=== PATIENT | female | born 1960 | race Caucasian/White ===

== ENCOUNTER 2019-01-27 12:37 | Observation (INO) ==
--- NOTE | 2019-01-27 13:01 | Emergency Department Note ---
Disposition Clinical Impression: Left facial numbness, Numbness of left hand Disposition: Admitted As Inpatient Condition: Fair Referrals: Joslyn Morton DO [Primary Care Provider] - Forms: ED Satisfaction Letter Time of Disposition: 15:03 Neuro HPI - General Chief Complaint: ED Neuro Symptoms/Deficit Stated Complaint: Left hand / face numbness Time Seen by Provider: 01/27/19 12:40 Source: patient Limitations: no limitations Nursing Notes Reviewed: Yes Vital Signs Reviewed: Yes - History of Present Illness HPI Narrative: 58-year-old female presents from home for evaluation of tingling to the dorsum of her left hand as well as to the left nasal labial crease. Onset yesterday at 3 PM; 21 hours prior to arrival. On its onset her symptoms were intermittent; on for 10 minutes off for 10 minutes. This lasted approximately 1 hour before they became constant. They are present when she was asleep present when she woke this morning. Unchanged in location or intensity. Symptoms similar to when she had a TIA several years ago. She did take quantity 3 full dose aspirin yesterday evening. PMH: TIA, hypertension Habits: 1.5ppd x 44yrs tobacco smoking. No EtOH, no illicit. Anticoagulant: None Antiplatelet: None ROS: Positive: Tingling of left dorsal hand and left nasolabial fold Negative: Fever, chills, nausea, vomiting, chest pains, palpitations, dyspnea, diaphoresis. No slurring of speech, difficulty swallowing, facial asymmetry, weakness, headache, vision changes - Related Data Home Medications: Home Medications Medication Instructions Recorded Confirmed Aspirin [Adult Aspirin Regimen] 81 mg PO DAILY 01/27/19 01/27/19 Omeprazole [PriLOSEC] 40 mg PO DAILY 01/27/19 01/27/19 Triamterene/HCTZ 37.5/25mg 1 each PO DAILY 01/27/19 01/27/19 [Dyazide] Allergies/Adverse Reactions: Allergies Allergy/AdvReac Type Severity Reaction Status Date / Time ciprofloxacin [From Cipro] AdvReac Itching Verified 01/27/19 12:39 Sulfa (Sulfonamide AdvReac Hives Verified 01/27/19 12:39 Antibiotics) All systems ED: reviewed and negative except as stated. Review of Systems: As Per HPI Past Medical History - Past Medical History Medical history: Reports: hypertension, TIA - Social History Smoking Status: Current every day smoker Alcohol use: Reports: none Drug use: Reports: none Physical Exam Vital Signs Reviewed General: Patient is alert, oriented, and in no acute distress. Head: atraumatic, normocephalic Eye: normal appearance, PERRL, EOMI, no scleral icterus, no conjunctival injection ENT: mucous membranes moist, normal external ear exam Neck: normal inspection, trachea midline, full ROM Chest: normal inspection, symmetric chest rise Respiratory: Good respiratory effort. Bilateral breath sounds are clear without wheezing, crackles, or rhonchi. Cardiovascular: Regular rate and rhythm. No clicks, rubs, gallops, or murmors. Normal heart sounds. Abdomen: Bowel sounds present normoactive. Abdomen is soft, nondistended, and nontender. No guarding or rebound. No organomegaly noted. Musculoskeletal: Spontaneously moving all extremities. Skin: warm, dry, intact. Neuro: GCS 15. Patient is answering all questions briskly and appropriately and without hesitation. No slurring of speech. No facial asymmetry. Maintaining oral secretions without difficulty. Strength 5/5 and equal in bilateral upper and lower extremity is. Sensation to light touch intact and equal in bilateral upper and lower extremities with the exception of tingling to the dorsum of left hand from wrist to her fingertips. Tingling to touch and left cranial nerve V2 and V1 distribution along the left nasal labial fold. Negative heel to patterson. Negative finger to nose. Psych: Patient's affect is appropriate for situation. - General Limitations: no limitations General appearance: alert, in no apparent distress Course Course Narrative: Code stroke not called; patient's symptoms onset 21 hours prior to arrival. NIHSS 1 due to decreased sensation to left dorsal hand and left nasolabial fold. EKG dated 01/27/2019 at 12:58 interpreted as sinus rhythm with rate of 80. AL 125, QTC 436. Normal axis. Nonspecific ST-T changes. No previous EKG for comparison. CT head shows low attenuation in the right frontal lobe. Aspirin 325 given. I discussed the above with the on-call neurologist, Dr. Sparks. He recommends admission for stroke workup as well as CTA head and neck while emergency department. CTA head shows no acute findings. CTA neck shows no acute findings. Patient reassessed. Her symptoms are not worse but are not improved. She is agreeable to admission for continued evaluation. I discussed the above with the admitting hospitalist, Dr. Colmenares, who agrees to accept the patient for continued evaluation and monitoring. Head CT 01/27/19 12:55 IMPRESSION: Possible sulcal low-attenuation lesion right frontal lobe. A brain MRI is suggested for further evaluation. D/ / Grant Keys MD / Grant Keys MD Interpreting Provider: Grant Keys MD Neck CTA 01/27/19 13:56 IMPRESSION: 1. No major branch occlusion, significant stenosis or cerebral aneurysm identified within the [id number]. An MRI could be performed for further evaluation of the abnormality described on the previous noncontrast head CT, if clinically warranted. 2. No significant arterial stenosis identified within the neck. 3. Mild atherosclerosis. D/ / 01/27/2019 14:44:11 Alli Rao MD / anirudh Interpreting Provider: Alli Rao MD Head CTA 01/27/19 13:58 IMPRESSION: 1. No major branch occlusion, significant stenosis or cerebral aneurysm identified within the [id number]. An MRI could be performed for further evaluation of the abnormality described on the previous noncontrast head CT, if clinically warranted. 2. No significant arterial stenosis identified within the neck. 3. Mild atherosclerosis. D/ / 01/27/2019 14:44:11 Alli Rao MD / anirudh Interpreting Provider: Alli Rao MD Vital Signs Temperature 97.6 F 01/27/19 12:38 Pulse Rate 76 01/27/19 12:38 Respiratory Rate 16 01/27/19 12:38 Blood Pressure 150/97 01/27/19 12:38 O2 Sat by Pulse Oximetry 98 01/27/19 12:38 Temperature 97.6 F 01/27/19 12:44 Pulse Rate 76 01/27/19 12:44 Respiratory Rate 16 01/27/19 12:44 Blood Pressure 150/97 01/27/19 12:44 O2 Sat by Pulse Oximetry 98 01/27/19 12:44 Oxygen Delivery Oxygen Delivery Room Air Neuro Symptoms/Deficit - Lab Data Result diagrams: 01/27/19 12:48 01/27/19 12:48 Lab Results 01/27/19 01/27/19 01/27/19 Range/Units 12:44 12:48 12:48 WBC 9.4 (4.3-11.1) K/mcL RBC 5.46 H (3.82-4.97) M/mcL Hgb 16.0 H (11.5-15.4) g/dL Hct 48.0 H (35.3-44.9) % MCV 87.9 (83.0-100.0) fL MCH 29.3 (28.0-33.3) pg MCHC 33.3 (31.6-35.5) g/dL RDW 13.2 (11.5-14.5) % Plt Count 185 (140-400) K/mcL MPV 11.3 (9.4-12.4) fL Immature Plt Fraction 8.7 H (1.1-6.1) % Sodium 135 L (136-145) mEq/L Potassium 4.0 (3.5-5.1) mEq/L Chloride 104 (98-107) mEq/L Carbon Dioxide 23 (23-29) mEq/L BUN 15 (6-20) mg/dL Creatinine 0.74 (0.60-1.20) mg/dL Est GFR ( Amer) > 60 (> 60) Est GFR (Non-Af Amer) > 60 (> 60) BUN/Creatinine Ratio 20 (6-26) Glucose 87 (70-105) mg/dL POC Glucose 88 (70-99) mg/dL Calculated Osmolality 280 (280-300) Calcium 9.7 (8.6-10.3) mg/dL Troponin I < 0.03 (< 0.04) ng/mL NIH Stroke Scale - Level of Consciousness LOC: Alert - LOC Questions LOC Questions: Answers both correctly - LOC Commands LOC Commands: Performs both correctly - Best Gaze Best Gaze: Normal - Visual Visual: No visual loss - Facial Palsy Facial Palsy: Normal - Motor Arms Motor Arm-Left: No drift for 10 seconds Motor Arm-Right: No drift for 10 seconds - Motor Legs Motor Leg-Left: No drift for 5 seconds Motor Leg-Right: No drift for 5 seconds - Limb Ataxia Limb Ataxia: Normal, No Ataxia - Sensory Sensory: Mild to moderate loss, "not as sharp" - Best Language Best Language: No aphasia - Dysarthria Dysarthria: Normal - Extinction and Inattention Extinction and Inattention: Normal - NIHSS Total Score NIHSS Total Score: 1 TPA Checklist - Source Information Source: Patient - Eligibilty for IV tPA 1. LKW equal to or less than 4.5 hours be before treatment: No - LKW: 3-4.5 hrs Add. Warnings/Precautions Patient/family understanding: The patient/family members have been counseled and understood the risk, benefit, and alternatives of treatment.
[2019-01-27 13:07] LABS: Immature Platelets 8.7 % (1.1-6.1); Mean Corpuscular HGB Conc 33.3 g/dL (31.6-35.5); Mean Corpuscular Hemoglobin 29.3 pg (28.0-33.3); Mean Corpuscular Volume 87.9 fL (83.0-100.0); Mean Platelet Volume 11.3 fL (9.4-12.4); Red Blood Count 5.46 M/mcL (3.82-4.97); Red Cell Distribution Width 13.2 % (11.5-14.5); White Blood Count 9.4 K/mcL (4.3-11.1)
[2019-01-27 13:25] LABS: BUN/Creatinine Ratio 20 (6-26); Blood Urea Nitrogen 15 mg/dL (6-20); Calcium 9.7 mg/dL (8.6-10.3); Carbon Dioxide 23 mEq/L (23-29); Chloride 104 mEq/L (98-107); Glucose 87 mg/dL (70-105); Osmolality,Calculated 280 (280-300); Sodium 135 mEq/L (136-145); eGFR For African Americans > 60 (> 60); eGFR For Non-African Americans > 60 (> 60)
[2019-01-27 13:26] LABS: Troponin I < 0.03 ng/mL (< 0.04)
[2019-01-27] MEDS ORDERED: Aspirin 325 MG TABLET PO ONE (13:56)
[2019-01-27] MEDS ORDERED: Isovue-370 500 ML BOTTLE IVP ONE (13:58)
--- NOTE | 2019-01-27 14:52 | Emergency Department Note ---
Disposition Clinical Impression: TIA (transient ischemic attack) Disposition: Admitted As Inpatient Condition: Good Referrals: Joslyn Morton DO [Primary Care Provider] - Forms: ED Satisfaction Letter Time of Disposition: 14:53 General Adult HPI - General Chief complaint: ED Neuro Symptoms/Deficit Stated complaint: Left hand / face numbness Time Seen by Provider: 01/27/19 12:40 Source: patient Limitations: no limitations - History of Present Illness Pain Scale: 0 - Related Data Home Medications Medication Instructions Recorded Confirmed Aspirin [Adult Aspirin Regimen] 81 mg PO DAILY 01/27/19 01/27/19 Omeprazole [PriLOSEC] 40 mg PO DAILY 01/27/19 01/27/19 Triamterene/HCTZ 37.5/25mg 1 each PO DAILY 01/27/19 01/27/19 [Dyazide] Allergies Allergy/AdvReac Type Severity Reaction Status Date / Time ciprofloxacin [From Cipro] AdvReac Itching Verified 01/27/19 12:39 Sulfa (Sulfonamide AdvReac Hives Verified 01/27/19 12:39 Antibiotics) Past Medical History - Past Medical History Medical history: Reports: hypertension, TIA - Social History Smoking Status: Current every day smoker Alcohol use: Reports: none Drug use: Reports: none Physical Exam - General Limitations: no limitations General appearance: alert, in no apparent distress Course Vital Signs Temperature 97.6 F 01/27/19 12:38 Pulse Rate 76 01/27/19 12:38 Respiratory Rate 16 01/27/19 12:38 Blood Pressure 150/97 01/27/19 12:38 O2 Sat by Pulse Oximetry 98 01/27/19 12:38 Temperature 97.6 F 01/27/19 12:44 Pulse Rate 76 01/27/19 12:44 Respiratory Rate 16 01/27/19 12:44 Blood Pressure 150/97 01/27/19 12:44 O2 Sat by Pulse Oximetry 98 01/27/19 12:44 Oxygen Delivery Oxygen Delivery Room Air Medical Decision Making - Lab Data Result diagrams: 01/27/19 12:48 01/27/19 12:48 Lab Results 01/27/19 01/27/19 01/27/19 Range/Units 12:44 12:48 12:48 WBC 9.4 (4.3-11.1) K/mcL RBC 5.46 H (3.82-4.97) M/mcL Hgb 16.0 H (11.5-15.4) g/dL Hct 48.0 H (35.3-44.9) % MCV 87.9 (83.0-100.0) fL MCH 29.3 (28.0-33.3) pg MCHC 33.3 (31.6-35.5) g/dL RDW 13.2 (11.5-14.5) % Plt Count 185 (140-400) K/mcL MPV 11.3 (9.4-12.4) fL Immature Plt Fraction 8.7 H (1.1-6.1) % Sodium 135 L (136-145) mEq/L Potassium 4.0 (3.5-5.1) mEq/L Chloride 104 (98-107) mEq/L Carbon Dioxide 23 (23-29) mEq/L BUN 15 (6-20) mg/dL Creatinine 0.74 (0.60-1.20) mg/dL Est GFR ( Amer) > 60 (> 60) Est GFR (Non-Af Amer) > 60 (> 60) BUN/Creatinine Ratio 20 (6-26) Glucose 87 (70-105) mg/dL POC Glucose 88 (70-99) mg/dL Calculated Osmolality 280 (280-300) Calcium 9.7 (8.6-10.3) mg/dL Troponin I < 0.03 (< 0.04) ng/mL Attestation Statement - Attestation Attestation: I reviewed the residents documentation and agree with the residents assessment and plan of care. I have personally had face to face time with the patient. (Brief History, Brief Exam, and MDM) I personally supervised and was present for the roth/critical portions of the following procedures completed by the resident: EKG 58 year old female presents to the eD with complaints of left facial corner mouth numbness and left hand dorsum numbness. Patient has a low attenutation to the right frontal lobe that is concerning for a new infarct. CTA head and neck are otheriwe negative for blockages. Patinet appears to have no improvement in her symptoms but it also has not worsened. Discusssed case with neurology (mila) and he recommedends admission to the hospital with neuro consult and MRI. Christopher mccarthy is agreeable to plan
[2019-01-27] MEDS ORDERED: Naloxone 0.4 MG/ML INJ IVP PRN (15:13)
[2019-01-27] MEDS ORDERED: Acetaminophen 325 MG TABLET PO PRN (15:13)
[2019-01-27] MEDS ORDERED: Ondansetron ODT 4 MG TAB.RAPDIS SL PRN (15:13)
--- NOTE | 2019-01-27 15:19 | Internal Med History&Physical ---
Date of Encounter: 01/27/19 Time of Encounter: 15:18 Internal Medicine - H&P: HPI Chief complaint: Numbness and tingling Admitted From: Emergency Dept Plans for Post Hospital Care: Home History of present illness: Ms. Figueroa is a 58 year old female astragal history of hypertension COPD PE TIA presented to [facility] ED with complaints of tingling of the dorsum of her left hand while the left nasal labial crease. Onset of symptoms began approximately 3 PM yesterday 21 hours prior to arrival. Initially the symptoms were intermittent and then becoming more constant. They occurred throughout the night unchanged in intensity. Patient denies any slurred speech difficulty speaking facial droop difficulty walking weakness headaches or vision changes chest pain or palpitations. She did take 34 aspirins yesterday when symptoms began. Patient states symptoms are similar to her TIA that she had several years ago however they have not resolved. In the ER EKG with no ST-T wave abnormality lab work unremarkable. CT head without contrast does reveal possible sulk I low attenuation lesion right frontal lobe, CTA head and neck with no major branch occlusion significant stenosis a cerebral aneurysm identified within the sun'aq of Bernal. No significant arterial stenosis mild atherosclerosis. Patient was given an aspirin in the ER she has been admitted for further workup and evaluation. Currently she continues to experience numbness and tingling develops cyber phase as well as her left hand she is hemodynamically stable at this time Past Med Surg Social Fam HX - Past Medical History Medical history: hypertension, TIA - Social History Smoking Status: Current every day smoker Alcohol use: none Drug use: none - Family History Father Living Status: Cause of : Squama cell carcinoma Internal Medicine - H&P: Meds Aspirin [Adult Aspirin Regimen] 81 mg PO DAILY 01/27/19 [History] Omeprazole [PriLOSEC] 40 mg PO DAILY 01/27/19 [History] Triamterene/HCTZ 37.5/25mg [Dyazide] 1 each PO DAILY 01/27/19 [History] Allergy/AdvReac Type Severity Reaction Status Date / Time ciprofloxacin [From Cipro] AdvReac Itching Verified 01/27/19 12:39 Sulfa (Sulfonamide AdvReac Hives Verified 01/27/19 12:39 Antibiotics) All Systems PM: A 10-system review of systems was performed and is negative for pertinent findings except as documented above in the HPI. - Constitutional Constitutional: no chills, no fever(s), no night sweats - EENT Eyes: no change in vision, no discharge, no pain, no photophobia Ears: no ear discharge, no ear pain, no tinnitus Nose, mouth and throat: no dysphagia, no nasal discharge, no neck pain, no sore throat - Cardiovascular Cardiovascular ROS IM: no chest pain, no diaphoresis, no dyspnea, no lightheadedness, no palpitations, no syncope - Respiratory Respiratory: no cough, no dyspnea, no wheezing, no excessive phlegm production - Gastrointestinal Gastrointestinal: no abdominal pain, no diarrhea, no hematemesis, no hematochezia, no melena, no nausea, no vomiting - Genitourinary Genitourinary: no change in urinary stream, no dysuria, no flank pain, no hematuria - Musculoskeletal Musculoskeletal ROS IM: no numbness, no tingling - Integumentary Integumentary IM: no rash, no unusual bruising - Neurological Neurological ROS: no confusion, no convulsions, no focal weakness, no numbness, no tingling, no tremor(s) - Hematologic/Lymphatic Hematologic/Lymphatic: no easy bruising - Constitutional Vitals: Temp Pulse Resp BP Pulse Ox 97.6 F 68 16 132/81 96 01/27/19 12:44 01/27/19 15:00 01/27/19 15:00 01/27/19 15:00 01/27/19 15:00 General appearance: Present: A&O X 3 Exam: . - Head Head exam: Present: atraumatic, normocephalic - Eye Eye exam: Present: PERRL, conjuntiva pink, sclera anicteric Pupils: Present: PERRL - Neck Neck exam general surgery: Present: supple, trachea midline. Absent: lymphadenopathy - Respiratory Respiratory exam: Present: CTAB. Absent: accessory muscle use, rales, rhonchi, wheezes - Cardiovascular Cardiovascular exam: Present: RRR, +S1, +S2. Absent: diastolic murmur, gallop, rubs, systolic murmur - GI/Abdominal GI/Abdominal exam: Present: normal bowel sounds, soft, no peritoneal signs. Absent: distended, tenderness - Extremities Exam Extremities exam: Present: warm, radial pulses palpable and symmetrical. Absent: calf tenderness, cyanotic, pedal edema - Neurological Exam Neurological exam: Present: CN II-XII intact, oriented X3, no focal deficits. Absent: pronater drift, facial droop, speech deficit - Skin Skin exam: Present: dry, intact Internal Med - H&P Results - Labs CBC & Chem 7: 01/27/19 12:48 01/27/19 12:48 Labs: Short CBC 01/27/19 Range/Units 12:48 WBC 9.4 (4.3-11.1) K/mcL Hgb 16.0 H (11.5-15.4) g/dL Hct 48.0 H (35.3-44.9) % Plt Count 185 (140-400) K/mcL BMP 01/27/19 12:48 Sodium 135 L Potassium 4.0 Chloride 104 Carbon Dioxide 23 BUN 15 Creatinine 0.74 Glucose 87 Calcium 9.7 Cardiac Enzymes 01/27/19 Range/Units 12:48 Troponin I < 0.03 (< 0.04) ng/mL - EKG Data EKG shows normal: sinus rhythm - Impressions ITS Impressions Head CT 01/27/19 12:55 IMPRESSION: Possible sulcal low-attenuation lesion right frontal lobe. A brain MRI is suggested for further evaluation. D/ / Grant Keys MD / Grant Keys MD Interpreting Provider: Grant Keys MD Neck CTA 01/27/19 13:56 IMPRESSION: 1. No major branch occlusion, significant stenosis or cerebral aneurysm identified within the [id number]. An MRI could be performed for further evaluation of the abnormality described on the previous noncontrast head CT, if clinically warranted. 2. No significant arterial stenosis identified within the neck. 3. Mild atherosclerosis. D/ / 01/27/2019 14:44:11 Alli Rao MD / anirudh Interpreting Provider: Alli Rao MD Head CTA 01/27/19 13:58 IMPRESSION: 1. No major branch occlusion, significant stenosis or cerebral aneurysm identified within the [id number]. An MRI could be performed for further evaluation of the abnormality described on the previous noncontrast head CT, if clinically warranted. 2. No significant arterial stenosis identified within the neck. 3. Mild atherosclerosis. D/ / 01/27/2019 14:44:11 Alli Rao MD / anirudh Interpreting Provider: Alli Rao MD - Diagnostic Studies Chest x-ray Additional comments: Head CT 01/27/19 12:55 IMPRESSION: Possible sulcal low-attenuation lesion right frontal lobe. A brain MRI is suggested for further evaluation. D/ / Grant Keys MD / Grant Keys MD Interpreting Provider: Grant Keys MD Neck CTA 01/27/19 13:56 IMPRESSION: 1. No major branch occlusion, significant stenosis or cerebral aneurysm identified within the [id number]. An MRI could be performed for further evaluation of the abnormality described on the previous noncontrast head CT, if clinically warranted. 2. No significant arterial stenosis identified within the neck. 3. Mild atherosclerosis. D/ / 01/27/2019 14:44:11 Alli Rao MD / anirudh Interpreting Provider: Alli Rao MD Head CTA 01/27/19 13:58 IMPRESSION: 1. No major branch occlusion, significant stenosis or cerebral aneurysm identified within the [id number]. An MRI could be performed for further evaluation of the abnormality described on the previous noncontrast head CT, if clinically warranted. 2. No significant arterial stenosis identified within the neck. 3. Mild atherosclerosis. D/ / 01/27/2019 14:44:11 Alli Rao MD / anirudh Interpreting Provider: Alli Rao MD - Assessment and Plan (1) HTN (hypertension) Current Visit: No Status: Chronic Assessment and plan: Patient has a history of hypertension however states she has not taken her medication in several months-we will monitor blood pressure and allow for permissive hypertension Hydralazine as needed for systolic greater than 190 Qualifiers: Hypertension type: essential hypertension Qualified Code(s): I10 - Essential (primary) hypertension (2) COPD (chronic obstructive pulmonary disease) Current Visit: No Status: Chronic Assessment and plan: Does not appear to be in exacerbation at this time patient is a current smoker does not use any oxygen at home Bronchodilators as needed Qualifiers: COPD type: unspecified COPD Qualified Code(s): J44.9 - Chronic obstructive pulmonary disease, unspecified (3) CVA (cerebral vascular accident) Current Visit: Yes Status: Suspected Assessment and plan: Patient presented after experiencing numbness and tingling to left side her face as well as her left hand which has been occurring for approximately 21 hours prior to presentation. There are no focal deficits no facial droop no difficulty speaking or swallowing patient shows no difficulty in ambulation. Patient had past history of TIA similar symptoms which did resolve. Also past history of PE denies any history of atrial fibrillation she is currently not on any anticoagulation-she has uncontrolled blood pressure is a current smoker Initial CT of head does show Possible sulcal low-attenuation lesion right frontal lobe. A brain MRI is suggested for further evaluation. CTA of head and neck with no major branch occlusion or significant stenosis or cerebral aneurysm We will obtain MRI of head/brain Continue with aspirin Add Statin Obtain lipid profile Neurochecks-NIHSS Allow for permissive hypertension Neurology has been consulted and appreciate recommendations Qualifiers: CVA mechanism: unspecified Qualified Code(s): I63.9 - Cerebral infarction, unspecified (4) DVT prophylaxis Current Visit: Yes Status: Acute Assessment and plan: DVT prophylaxis (5) Current smoker Current Visit: No Status: Chronic Assessment and plan: Patient smokes approximately 1/2-2 packs a day encourage patient to stop smok ing-nicotine patch - Time Spent With Patient Total time spent is greater than 50% in coordination of care (as documented) at patient's floor/unit and/or counseling patient:
[2019-01-27] MEDS: Nicotine 21 MG PATCH.TD24 TD SCH (18:35)
--- NOTE | 2019-01-27 18:49 | Neurology - Consult Note ---
Date of Encounter: 01/27/19 Time of Encounter: 18:43 Assessment and Plan (1) Left facial numbness Current Visit: Yes Status: Acute acute onset of left facial and arm/hand numbness > 24 hours concerning for sensory lacunar infarct. patient has HTN and COPD and a smoker. Agree with Asprin and statin therapy. Await MRI of brain, echo and carotid artery duplex. CTA of neck and head already completed and no significant flow limiting arterial stenosis seen. Risk factor modification for strokes. Smoke cessation advised. Will follow up when stroke work up is complete. History of Present Illness Chief complaint: left eye pain, facial and arm numbness HPI: Ms. Figueroa is a 58 year old female with PMH significant for COPD, HTN, GERD, OA, fibromyalgia, chronic painwho presented to the ER with acute onset of facial and arm numbness. Patient states that she developed some pain involving left eye the day before yesterday, without any other discomforts. The eye pain come and go and was not persistent. 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 Then she started feeling numbness to her left hand and fingers and this come and go lasting only few minutes at a time and then in the evening time it stayed. She woke up with the same feeling, left hand/fingers are numb as well as the left corner of mouth was numb. She reports no other neurological deficits. She states that she has had TIA's symptoms before but never lasted more than one day. SHe has HTN but stopped antihypertensive medications for about a month. She admits that she is not very about taking her medications. CT of head showed possible low intensity involving the right frontal lobe. CTA angio head and neck also completed and results reviewed. Past Med Surg Social Fam HX - Past Medical History Medical history: hypertension, TIA - Social History Smoking Status: Current every day smoker Alcohol use: none Drug use: none - Family History Father Living Status: Cause of : Squama cell carcinoma Medications and Allergies Aspirin [Adult Aspirin Regimen] 81 mg PO DAILY 01/27/19 [History] Omeprazole [PriLOSEC] 40 mg PO DAILY 01/27/19 [History] Triamterene/HCTZ 37.5/25mg [Dyazide] 1 each PO DAILY 01/27/19 [History] Allergy/AdvReac Type Severity Reaction Status Date / Time ciprofloxacin [From Cipro] AdvReac Itching Verified 01/27/19 12:39 Sulfa (Sulfonamide AdvReac Hives Verified 01/27/19 12:39 Antibiotics) All Systems: The remainder of the systems were reviewed and are negative - Constitutional Constitutional ROS IM: anorexia (no), chills (no), daytime sleepiness (no) - Nose, Mouth, Throat Nose, mouth and throat: abnormal hearing (no), dizziness (no), headache(s) (no) - Cardiovascular Cardiovascular ROS IM: chest pain (no), chest pain at rest (no), chest pain with activity (no) - Respiratory Respiratory IM: cough (no), dyspnea (no), hemoptysis (no) - Gastrointestinal Gastrointestinal: abdominal pain (no) - Musculoskeletal Musculoskeletal ROS IM: abnormal gait (no) - Neurological Neurological ROS: abnormal gait (no), abnormal hearing (no), abnormal speech (yes), numbness (yes), paresthesias (yes), tingling (yes) - Psychiatric Psychiatric general PM: abnormal sleep pattern (no), auditory hallucinations (no), hallucinations (no) Physical Examination - Vital Signs Vital Signs: Initial Vital Signs Temp Pulse Resp BP Pulse Ox 97.6 F 76 16 150/97 98 01/27/19 12:38 01/27/19 12:38 01/27/19 12:38 01/27/19 12:38 01/27/19 12:38 - Constitutional General appearance: comfortable - Neurologic Sensorimotor examination: intact Detailed motor examination: full strength in all major muscle groups Motor examination - right side: 5/5: deltoids, biceps, triceps, wrist flexion, 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 extension, 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, hip flexors, tibialis Anterior, quadriceps, toe extension (EHL), plantarflexion Motor examination - left side: 5/5: deltoids, biceps, triceps, wrist flexion, wrist extension, hip flexors, 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, quadriceps, tibialis Anterior, toe extension (EHL), plantarflexion Detailed sensory examination: other (reduced pinprick to left hand and left co rner of mouth) Posture: other (None) Reflex and gait examination: other (Not tested) Reflexes: Biceps: 2+, Triceps: 2+, Brachioradialis: 2+, Patella: 2+, Achilles: 2+ Mental Status Examination: awake, alert, oriented to person, oriented to place, oriented to time, follows commands appropriately, answers questions appropriately, no agnosia, no aphasia, no aproxia Cranial nerve examination: PERRL, EOMI, visual lozoya intact, corneal reflexes brisk symmetrically, sensory to face intact, mastication intact, no facial asymmetry is present, no dysarthria, hearing is intact symmetrically, soft palate elevates bilaterally upon phonation, gag reflex intact, flexes SCM and trapezius muscles symmetrically with full power, tongue protrudes midline, no atrophy or facial fasiculations present Results - Laboratory Findings CBC and BMP: 01/27/19 12:48 01/27/19 12:48 Abnormal lab findings: Abnormal lab results RBC 5.46 M/mcL (3.82-4.97) H 01/27/19 12:48 Hgb 16.0 g/dL (11.5-15.4) H 01/27/19 12:48 Hct 48.0 % (35.3-44.9) H 01/27/19 12:48 Immature Plt Fraction 8.7 % (1.1-6.1) H 01/27/19 12:48 Sodium 135 mEq/L (136-145) L 01/27/19 12:48 - Diagnostic Findings Additional findings: EXAMINATION: CT OF THE HEAD WITHOUT CONTRAST 01/27/2019 1:32 pm TECHNIQUE: CT of the head was performed without the administration of intravenous contrast. Dose modulation, iterative reconstruction, and/or weight based adjustment of the mA/kV was utilized to reduce the radiation dose to as low as reasonably achievable. COMPARISON: None. HISTORY: ORDERING SYSTEM PROVIDED HISTORY: numbness to lt face lt hand. 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 No abnormal extra-axial fluid collection. Subtle low-attenuation region in the right frontal lobe. ORBITS: The visualized portion of the orbits demonstrate no acute abnormality. SINUSES: The visualized paranasal sinuses and mastoid air cells demonstrate no acute abnormality. SOFT TISSUES/SKULL: No acute abnormality of the visualized skull or soft tissues. CT/CT head/brain wo con IMPRESSION: Possible sulcal low-attenuation lesion right frontal lobe. A brain MRI is suggested for further evaluation. D/ / Grant Keys MD / Grant Keys MD Interpreting Provider: Grant Keys MD OF THE NECK; CTA OF THE HEAD WITHOUT AND WITH CONTRAST 01/27/2019 2:26 pm; 01/27/2019 2:30 pm: TECHNIQUE: CTA of the neck was performed with the administration of intravenous contrast. Multiplanar reformatted images are provided for review. MIP images are provided for review. Stenosis of the internal carotid arteries measured using NASCET criteria. Dose modulation, iterative reconstruction, and/or weight based adjustment of the mA/kV was utilized to reduce the radiation dose to as low as reasonably achievable.; CTA of the head/brain was performed without and with the administration of intravenous contrast. Multiplanar reformatted images are provided for review. MIP images are provided for review. Dose modulation, iterative reconstruction, and/or weight based adjustment of the mA/kV was utilized to reduce the radiation dose to as low as reasonably achievable. COMPARISON: Noncontrast CT brain performed earlier same day. HISTORY: ORDERING SYSTEM PROVIDED HISTORY: right frontal low attenuation on ct non con; ORDERING SYSTEM PROVIDED HISTORY: right frontal lobe low attenuation on ct noncon Tingling in the fingers and face. Acute onset. FINDINGS: AORTIC ARCH/ARCH VESSELS: Mild atherosclerotic calcifications are present within the aortic arch. There is no significant stenosis of the innominate or subclavian arteries. CAROTID ARTERIES: The common carotid arteries are normal in appearance without evidence of a flow limiting stenosis. The internal carotid arteries are normal in appearance without evidence of a flow limiting stenosis by NASCET criteria. No dissection or arterial injury is seen. VERTEBRAL ARTERIES: The vertebral arteries are normal in appearance. There is no significant stenosis or dissection. SOFT TISSUES: There is no pathologically enlarged lymphadenopathy. There is no soft tissue mass identified. Severe centrilobular emphysematous changes are present within the upper lobes. BONES: No lytic or blastic osseous lesions are identified. CTA HEAD: ANTERIOR CIRCULATION: Atherosclerotic calcifications are present within the cavernous segments of the internal carotid arteries. There is no significant stenosis or aneurysm identified. The anterior and middle cerebral arteries are normal without significant stenosis or aneurysm identified. POSTERIOR CIRCULATION: The distal vertebral arteries are normal in appearance. The basilar artery is normal. No significant stenosis or aneurysm is identified. The posterior cerebral arteries are normal in appearance. BRAIN: No vascular malformation is identified. There is no venous sinus thrombosis evident. CT/CT angio neck IMPRESSION: 1. No major branch occlusion, significant stenosis or cerebral aneurysm identified within the [id number]. An MRI could be performed for further evaluation of the abnormality described on the previous noncontrast head CT, if clinically warranted. 2. No significant arterial stenosis identified within the neck. 3. Mild atherosclerosis. D/ / 01/27/2019 14:44:11 Alli Rao MD / [email or web address] Interpreting Provider: Alli Rao MD Consult Discharge Plan - Plan Referrals: Joslyn Morton DO [Primary Care Provider] -
[2019-01-28 06:28] LABS: Basophils # 0.1 K/mcL (0.0-0.2); Basophils % 0.6 %; Eosinophils # 0.2 K/mcL (0.0-0.6); Eosinophils % 1.8 %; Hematocrit 46.4 % (35.3-44.9); Hemoglobin 15.2 g/dL (11.5-15.4); Immature Granulocytes % 0.2 % (0-4); Lymphocytes # 4.4 K/mcL (0.6-4.6); Lymphocytes % 54.5 %; Mean Corpuscular HGB Conc 32.8 g/dL (31.6-35.5); Mean Corpuscular Hemoglobin 29.6 pg (28.0-33.3); Mean Corpuscular Volume 90.3 fL (83.0-100.0); Mean Platelet Volume 11.8 fL (9.4-12.4); Monocytes # 0.6 K/mcL (0.0-1.3); Monocytes % 7.5 %; Neutrophils # 2.9 K/mcL (1.6-8.9); Platelet Count 191 K/mcL (140-400); Red Blood Count 5.14 M/mcL (3.82-4.97); Red Cell Distribution Width 13.1 % (11.5-14.5); Segmented Neutrophils % 35.4 %; White Blood Count 8.2 K/mcL (4.3-11.1)
[2019-01-28 06:50] LABS: BUN/Creatinine Ratio 31 (6-26); Blood Urea Nitrogen 21 mg/dL (6-20); Calcium 9.3 mg/dL (8.6-10.3); Carbon Dioxide 24 mEq/L (23-29); Chloride 99 mEq/L (98-107); Chol/HDL Ratio 6.7 (0-4.9); Cholesterol 195 mg/dL (< 200); Glucose 91 mg/dL (70-105); HDL Cholesterol 29 mg/dL (40-59); LDL Cholesterol,Calculated 136 mg/dL (0-99); Magnesium 2.1 mg/dL (1.6-2.6); Osmolality,Calculated 289 (280-300); Potassium 3.6 mEq/L (3.5-5.1); Sodium 138 mEq/L (136-145); Triglycerides 151 mg/dL (< 150); eGFR For African Americans > 60 (> 60); eGFR For Non-African Americans > 60 (> 60)
[2019-01-28] MEDS: Nicotine 21 MG PATCH.TD24 TD SCH (07:48)
[2019-01-28] MEDS: *HR* Enoxaparin 40 MG/0.4 ML SYRINGE SQ SCH (07:48)
[2019-01-28] MEDS: Aspirin 81 MG TAB.CHEW PO SCH (07:48)
--- NOTE | 2019-01-28 09:58 | Neurology Progress Note ---
<Gregory Morel Bere - Last Filed: 01/28/19 11:23> Date of Encounter: 01/28/19 Time of Encounter: 09:58 Assessment and Plan (1) Left facial numbness Current Visit: Yes Status: Acute Patient presented with acute onset left facial and left hand paresthesias/numbness The symptoms have continued which is concerning for sensory lacunar infarct She does have risk factors of hypertension and smoking, previous small infarct/TIA She is prescribed HCTZ and aspirin outpatient but has not taken either in months Head CT, head CT, neck CTA were all negative for acute abnormality Exam admission positive for diminished sensation in left face and left hand, otherwise normal Exam today positive for diminished sensation in left hand with paresthesias of left face and left hand, otherwise normal She is being given aspirin and statin, blood pressure is controlled, MR head/brain pending I did certified substance abuse counselor the patient on being compliant with her home medications in order to lower her risk of stroke Otherwise further management and recommendations pending imaging results Further recommendations per Dr. Bledsoe (2) Numbness of left hand Current Visit: Yes Status: Acute Subjective Principal diagnosis: Stroke like symptoms Interval history: No acute events overnight or acute change this morning. Patient complains of continued left face paresthesia and left hand numbness and tingling. She has no new symptoms, weakness, facial droop or altered mental status. I informed her that we are waiting MRI of the head and brain to determine further medical management. She stated she understood and agreed with the plan of care. 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, tibialis Anterior, toe extension (EHL), plantarflexion Sensation intact: Present: other (Diminished light touch to left hand) Posture: Present: other (None) Reflex and gait examination: other (Negative Romberg) Reflexes: Biceps: 2+, Patella: 2+ Mental Status Examination: Present: awake, alert, oriented to person, oriented to place, oriented to time, follows commands appropriately, answers questions appropriately, no agnosia, no aphasia, no aproxia Cranial nerve examination: Present: PERRL, EOMI, visual lozoya intact, sensory to face intact, mastication intact, no facial asymmetry is present, no dysarthria, hearing is intact symmetrically, soft palate elevates bilaterally upon phonation, flexes SCM and trapezius muscles symmetrically with full power, tongue protrudes midline, no atrophy or facial fasiculations present Cerebellar examination: Present: performs finger to nose and heel to patterson symmet rically without ataxia Results - Laboratory Findings CBC and BMP: 01/28/19 04:44 01/28/19 04:44 Abnormal lab findings: Abnormal lab results RBC 5.14 M/mcL (3.82-4.97) H 01/28/19 04:44 Hgb 16.0 g/dL (11.5-15.4) H 01/27/19 12:48 Hct 46.4 % (35.3-44.9) H 01/28/19 04:44 Immature Plt Fraction 8.7 % (1.1-6.1) H 01/27/19 12:48 Sodium 135 mEq/L (136-145) L 01/27/19 12:48 BUN 21 mg/dL (6-20) H 01/28/19 04:44 BUN/Creatinine Ratio 31 (6-26) H 01/28/19 04:44 Triglycerides 151 mg/dL (< 150) H 01/28/19 04:44 LDL Cholesterol, Calc 136 mg/dL (0-99) H 01/28/19 04:44 HDL Cholesterol 29 mg/dL (40-59) L 01/28/19 04:44 Cholesterol/HDL Ratio 6.7 (0-4.9) H 01/28/19 04:44 Consult Discharge Plan - Plan Referrals: Joslyn Morton, [Primary Care Provider] - 02/04/19 4:15 pm <Sabrina Bledsoe I - Last Filed: 01/28/19 16:55> Date of Encounter: 01/28/19 Assessment and Plan (1) Left facial numbness Current Visit: Yes Status: Acute Pt was seen and examined, my medical decision was reviewed with the Resident Physician, I agree with the documented findings, disposition and treatment plan, as described except to the extent set forth below Patient was seen and examined admitted with face numbness as well as left hand numbness. Patient's symptoms history seems to be consistent with acute stroke MRI did shows acute infarct at the same time she was also found to have a PFO on echocardiogram At this time continue on aspirin along with statin, check venous duplex of both lower extremities Consult cardiology regarding PFO for any intervention considering she did have a acute infarct patient would benefit from some short-term rehabilitation All imaging studies as well as blood tests were reviewed and discussed with the patient in detail Sabrina Bledsoe MD (2) CVA (cerebral vascular accident) Current Visit: Yes Status: Suspected Qualifiers: CVA mechanism: unspecified Qualified Code(s): I63.9 - Cerebral infarction, unspecified Objective - Constitutional Vitals: Temp Pulse Resp BP Pulse Ox 97.5 F L 79 16 135/90 94 01/28/19 15:30 01/28/19 15:30 01/28/19 15:30 01/28/19 15:30 01/28/19 15:30 Results - Laboratory Findings CBC and BMP: 01/28/19 04:44 01/28/19 04:44 Abnormal lab findings: Abnormal lab results RBC 5.14 M/mcL (3.82-4.97) H 01/28/19 04:44 Hgb 16.0 g/dL (11.5-15.4) H 01/27/19 12:48 Hct 46.4 % (35.3-44.9) H 01/28/19 04:44 Immature Plt Fraction 8.7 % (1.1-6.1) H 01/27/19 12:48 Sodium 135 mEq/L (136-145) L 01/27/19 12:48 BUN 21 mg/dL (6-20) H 01/28/19 04:44 BUN/Creatinine Ratio 31 (6-26) H 01/28/19 04:44 Triglycerides 151 mg/dL (< 150) H 01/28/19 04:44 LDL Cholesterol, Calc 136 mg/dL (0-99) H 01/28/19 04:44 HDL Cholesterol 29 mg/dL (40-59) L 01/28/19 04:44 Cholesterol/HDL Ratio 6.7 (0-4.9) H 01/28/19 04:44
--- NOTE | 2019-01-28 11:10 | Electrocardiograph Report ---
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
--- NOTE | 2019-01-28 12:17 | Internal Med Progress Note ---
Hospitalist Progress Note - Encounter Date of Encounter: 01/28/19 Time of Encounter: 12:17 - Subjective Interval History: Patient was seen and examined at bedside denies any chest pain or shortness of breath however continues to experience left-sided facial numbness/left hand tingling. No other neuro deficits noted - Exam Vitals: Temp Pulse Resp BP Pulse Ox 97.6 F 74 16 130/88 94 01/28/19 11:19 01/28/19 11:19 01/28/19 11:19 01/28/19 11:01/28/19 11:19 Exam: Skin: Free of rash and discoloration. Eyes: Sclera is white. There is no discharge from eyes. ENMT: Oral/pharyngeal mucosa is normal in appearance. There is no discharge from nose or ears. Respiratory: Normal breath sounds with no crackles and wheezes bilaterally. CV: Heart is regular with no gallop or murmur. GI: Abdomen is flat and soft with no palpable mass or visceromegaly. : There is no tenderness in patient's flanks bilaterally. Neuro exam: He has good strength in upper and lower extremities. He has normal eye movements. Psychiatric: He has normal affect. His thought process is appropriate to the situation. - Assessment and Plan (1) HTN (hypertension) Current Visit: No Status: Chronic Assessment and Plan: Patient has a history of hypertension however states she has not taken her medication in several months-we will monitor blood pressure and allow for permissive hypertension Hydralazine as needed for systolic greater than 190 01/28 Discussed with patient the importance of medication compliance-we will resume BP medication after 24 hrs -allow for permissive HTN (2) COPD (chronic obstructive pulmonary disease) Current Visit: No Status: Chronic Assessment and Plan: Does not appear to be in exacerbation at this time patient is a current smoker does not use any oxygen at home Bronchodilators as needed Encourage patient to stop smoking (3) CVA (cerebral vascular accident) Current Visit: Yes Status: Suspected Assessment and Plan: Patient presented after experiencing numbness and tingling to left side her face as well as her left hand which has been occurring for approximately 21 hours prior to presentation. There are no focal deficits no facial droop no difficulty speaking or swallowing patient shows no difficulty in ambulation. Patient had past history of TIA similar symptoms which did resolve. Also past history of PE denies any history of atrial fibrillation she is currently not on any anticoagulation-she has uncontrolled blood pressure is a current smoker Initial CT of head does show Possible sulcal low-attenuation lesion right frontal lobe. A brain MRI is suggested for further evaluation. CTA of head and neck with no major branch occlusion or significant stenosis or cerebral aneurysm We will obtain MRI of head/brain Continue with aspirin Add Statin Obtain lipid profile Neurochecks-NIHSS Allow for permissive hypertension Neurology has been consulted and appreciate recommendations 01/[address] of head does show Possible sulcal low-attenuation lesion right frontal lobe. A brain MRI is suggested for further evaluation. 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 No other areas of restricted diffusion are identified. Moderate chronic small vessel ischemic disease. Continue statin Continue with aspirin Cardiac echo Impressions: LVEF 60-65%. Normal LV chamber size, wall thickness and function. Normal right ventricular structure and function. Mild tricuspid regurgitation. No pulmonary hypertension. PFO with small right to left shunt on saline contrast study. Neurology consulted and appreciate recommendations Cardiology consulted Lower extremity duplex (4) DVT prophylaxis Current Visit: Yes Status: Acute Assessment and Plan: DVT prophylaxis (5) Current smoker Current Visit: No Status: Chronic Assessment and Plan: Patient smokes approximately 1/2-2 packs a day encourage patient to stop smoking-nicotine patch - Time Spent with Patient Total time spent is greater than 50% in coordination of care (as documented) at patient's floor/unit and/or counseling patient: Internal Medicine: Result - Labs CBC & Chem 7: 01/28/19 04:44 01/28/19 04:44 Labs: Short CBC 01/27/19 01/28/19 Range/Units 12:48 04:44 WBC 9.4 8.2 (4.3-11.1) K/mcL Hgb 16.0 H 15.2 (11.5-15.4) g/dL Hct 48.0 H 46.4 H (35.3-44.9) % Plt Count 185 191 (140-400) K/mcL Neutrophils # 2.9 (1.6-8.9) K/mcL BMP 01/27/19 01/28/19 12:48 04:44 Sodium 135 L 138 Potassium 4.0 3.6 Chloride 104 99 Carbon Dioxide 23 24 BUN 15 21 H Creatinine 0.74 0.67 Glucose 87 91 Calcium 9.7 9.3 Cardiac Enzymes 01/27/19 Range/Units 12:48 Troponin I < 0.03 (< 0.04) ng/mL - Impressions Impressions Head CT 01/27/19 12:55 IMPRESSION: Possible sulcal low-attenuation lesion right frontal lobe. A brain MRI is suggested for further evaluation. D/ / Grant Keys MD / Grant Keys MD Interpreting Provider: Grant Keys MD Neck CTA 01/27/19 13:56 IMPRESSION: 1. No major branch occlusion, significant stenosis or cerebral aneurysm identified within the [id number]. An MRI could be performed for further evaluation of the abnormality described on the previous noncontrast head CT, if clinically warranted. 2. No significant arterial stenosis identified within the neck. 3. Mild atherosclerosis. D/ / 01/27/2019 14:44:11 Alli Rao MD / anirudh Interpreting Provider: Alli Rao MD Head CTA 01/27/19 13:58 IMPRESSION: 1. No major branch occlusion, significant stenosis or cerebral aneurysm identified within the [id number]. An MRI could be performed for further evaluation of the abnormality described on the previous noncontrast head CT, if clinically warranted. 2. No significant arterial stenosis identified within the neck. 3. Mild atherosclerosis. D/ / 01/27/2019 14:44:11 Alli Rao MD / anirudh Interpreting Provider: Alli Rao MD Brain MRI 01/28/19 15:26 IMPRESSION: There is a 6 mm acute infarct involving the right thalamus. No other areas of restricted diffusion are identified. Moderate chronic small vessel ischemic disease. D/ / 01/28/2019 11:47:55 Rebeka Freeman MD / alden Interpreting Provider: Rebeka Freeman MD Echocardiogram 01/28/19 15:53 Impressions: LVEF 60-65%. Normal LV chamber size, wall thickness and function. Normal right ventricular structure and function. Mild tricuspid regurgitation. No pulmonary hypertension. PFO with small right to left shunt on saline contrast study. Left Ventricular Wall Motion: Rest Echo Findings All wall segments showed normal motion. Findings: Study Quality * Technically adequate exam. ECG Findings * Normal sinus rhythm. Left Ventricle * LVEF 60-65%. * Normal LV chamber size, wall thickness and systolic function. * Normal left ventricular diastolic function. Right Ventricle * Normal right ventricular structure and function. Left Atrium * Normal left atrial size. Right Atrium * Normal right atrial size. Interatrial Septum * PFO with small right to left shunt on saline contrast study. Aortic Valve * Trileaflet aortic valve with normal function. * No aortic stenosis. * No aortic regurgitation. Mitral Valve * Normal mitral valve structure. * No mitral stenosis. * Trace mitral regurgitation. Tricuspid Valve * Normal tricuspid valve structure. * No tricuspid stenosis. * Mild tricuspid regurgitation. * Estimated RVSP is 36 mmHg. * Estimated RA pressure is 3 mmHg. * No pulmonary hypertension. Pulmonic Valve * Pulmonic valve is not well visualized. * No pulmonic stenosis. * No pulmonic regurgitation. Aorta * Normally sized aortic root. Pericardium * The pericardium appears normal. IVC * The IVC is not dilated. * > 50% respiratory change Consult Discharge Plan - Plan Referrals: Joslyn Morton DO [Primary Care Provider] - 02/04/19 4:15 pm (1) HTN (hypertension) Qualifiers: Hypertension type: essential hypertension Qualified Code(s): I10 - Essential (primary) hypertension (2) COPD (chronic obstructive pulmonary disease) Qualifiers: COPD type: unspecified COPD Qualified Code(s): J44.9 - Chronic obstructive pulmonary disease, unspecified (3) CVA (cerebral vascular accident) Qualifiers: CVA mechanism: unspecified Qualified Code(s): I63.9 - Cerebral infarction, unspecified
[2019-01-29] MEDS: Nicotine 21 MG PATCH.TD24 TD SCH (07:53)
[2019-01-29] MEDS: *HR* Enoxaparin 40 MG/0.4 ML SYRINGE SQ SCH (07:53)
[2019-01-29] MEDS: Aspirin 81 MG TAB.CHEW PO SCH (07:54)
--- NOTE | 2019-01-29 10:24 | Internal Med Progress Note ---
Hospitalist Progress Note - Encounter Date of Encounter: 01/29/19 Time of Encounter: 10:11 - Exam Vitals: Temp Pulse Resp BP Pulse Ox 97.6 F 66 18 144/90 95 01/29/19 07:13 01/29/19 07:13 01/29/19 07:13 01/29/19 07:13 01/29/19 07:13 - Assessment and Plan (1) HTN (hypertension) Current Visit: No Status: Chronic (2) COPD (chronic obstructive pulmonary disease) Current Visit: No Status: Chronic (3) CVA (cerebral vascular accident) Current Visit: Yes Status: Suspected (4) DVT prophylaxis Current Visit: Yes Status: Acute (5) Current smoker Current Visit: No Status: Chronic - Time Spent with Patient Total time spent is greater than 50% in coordination of care (as documented) at patient's floor/unit and/or counseling patient: Internal Medicine: Result - Labs CBC & Chem 7: 01/28/19 04:44 01/28/19 04:44 - Impressions Impressions Brain MRI 01/28/19 15:26 IMPRESSION: There is a 6 mm acute infarct involving the right thalamus. No other areas of restricted diffusion are identified. Moderate chronic small vessel ischemic disease. D/ / 01/28/2019 11:47:55 Rebeka Freeman MD / alden Interpreting Provider: Rebeka Freeman MD Echocardiogram 01/28/19 15:53 Impressions: LVEF 60-65%. Normal LV chamber size, wall thickness and function. Normal right ventricular structure and function. Mild tricuspid regurgitation. No pulmonary hypertension. PFO with small right to left shunt on saline contrast study. Left Ventricular Wall Motion: Rest Echo Findings All wall segments showed normal motion. Findings: Study Quality * Technically adequate exam. ECG Findings * Normal sinus rhythm. Left Ventricle * LVEF 60-65%. * Normal LV chamber size, wall thickness and systolic function. * Normal left ventricular diastolic function. Right Ventricle * Normal right ventricular structure and function. Left Atrium * Normal left atrial size. Right Atrium * Normal right atrial size. Interatrial Septum * PFO with small right to left shunt on saline contrast study. Aortic Valve * Trileaflet aortic valve with normal function. * No aortic stenosis. * No aortic regurgitation. Mitral Valve * Normal mitral valve structure. * No mitral stenosis. * Trace mitral regurgitation. Tricuspid Valve * Normal tricuspid valve structure. * No tricuspid stenosis. * Mild tricuspid regurgitation. * Estimated RVSP is 36 mmHg. * Estimated RA pressure is 3 mmHg. * No pulmonary hypertension. Pulmonic Valve * Pulmonic valve is not well visualized. * No pulmonic stenosis. * No pulmonic regurgitation. Aorta * Normally sized aortic root. Pericardium * The pericardium appears normal. IVC * The IVC is not dilated. * > 50% respiratory change Consult Discharge Plan - Plan Referrals: Joslyn Morton DO [Primary Care Provider] - 02/04/19 4:15 pm (1) HTN (hypertension) Qualifiers: Hypertension type: essential hypertension Qualified Code(s): I10 - Essential (primary) hypertension (2) COPD (chronic obstructive pulmonary disease) Qualifiers: COPD type: unspecified COPD Qualified Code(s): J44.9 - Chronic obstructive pulmonary disease, unspecified (3) CVA (cerebral vascular accident) Qualifiers: CVA mechanism: unspecified Qualified Code(s): I63.9 - Cerebral infarction, unspecified
--- NOTE | 2019-01-29 10:27 | Discharge Summary ---
- NOTES TO OUTPATIENT PROVIDER Notes to Outpatient Provider: CVA-with PFO-we will need to follow-up with both neurology and cardiology as outpatient. Continue with aspirin and statin and blood pressure medication Orders not resulted at time of discharge: Pending orders 01/28/19 06:00 ECG 12 lead ECG [ECG] AM 0600 Date of Encounter: 01/29/19 Time of Encounter: 10:25 - Discharge Diagnosis (1) HTN (hypertension) Priority: Secondary Status: Chronic Qualifiers: Hypertension type: essential hypertension Qualified Code(s): I10 - Essential (primary) hypertension (2) COPD (chronic obstructive pulmonary disease) Priority: Secondary Status: Chronic Qualifiers: COPD type: unspecified COPD Qualified Code(s): J44.9 - Chronic obstructive pulmonary disease, unspecified (3) CVA (cerebral vascular accident) Priority: Primary Status: Acute Qualifiers: CVA mechanism: unspecified Qualified Code(s): I63.9 - Cerebral infarction, unspecified (4) Current smoker Priority: Secondary Status: Chronic Hospital course: Ms. Figueroa is a 58 year old female past medical history of hypertension COPD PE TIA resented to [facility] ED with complaints of tingling and dorsum of left hand and the left nasal labial crease. Onset was 21 hours prior to arrival. Initially symptoms were intermittent and then became more constant and unchanged. Denied any slurred speech difficulty swallowing or facial droop difficulty we will walking weakness headaches or vision changes. Patient admits that she has not been taking her medications for the past 3 months which includes her aspirin and statin and blood pressure medicine EKG normal sinus rhythm CT of head without contrast revealed possible sulci low-attenuation lesion right frontal lobe. CTA head and neck with no major branch occlusions significant lesions or cerebral aneurysms within the [place]. No significant arterial stenosis. She did undergo MRI of brain which did reveal a 6 mm acute infarct involving the right thalamus. Cardiac echo was obtained which did show EF of 6065% and a PFO with small right to left shunt run a duplex with nonstenotic plaque right side and left side essentially normal lower extremity duplex negative for DVT or SVT bilaterally-patient was seen by neurology recommending continuation of aspirin and statin and evaluation by cardiology for PFO. Cardiology recommending outpatient follow-up continue with aspirin. Patient was educated on the importance of adherence to medication regime. Patient verbalizes understanding. Patient was evaluated by PT and OT - Time Spent with Patient Total time spent providing and/or coordinating discharge services: - Discharge Medications Prescriptions: New Atorvastatin [Lipitor] 40 mg PO HS #30 tablet Continued Triamterene/HCTZ 37.5/25mg [Dyazide] 1 each PO QAM Aspirin [Adult Aspirin Regimen] 81 mg PO DAILY Omeprazole [PriLOSEC] 40 mg PO DAILY No Action Pravastatin Sodium [Pravachol] 20 mg PO QPM Home Medications: Aspirin [Adult Aspirin Regimen] 81 mg PO DAILY 01/27/19 [History] Omeprazole [PriLOSEC] 40 mg PO DAILY 01/27/19 [History] Triamterene/HCTZ 37.5/25mg [Dyazide] 1 each PO QAM 01/27/19 [History] Pravastatin Sodium [Pravachol] 20 mg PO QPM 01/28/19 [History] Atorvastatin [Lipitor] 40 mg PO HS #30 tablet 01/29/19 [Rx] Allergies/Adverse Reactions: Allergy/AdvReac Type Severity Reaction Status Date / Time ciprofloxacin [From Cipro] AdvReac Itching Verified 01/28/19 23:09 Sulfa (Sulfonamide AdvReac Hives Verified 01/28/19 23:09 Antibiotics) Date of admission: 01/27/19 15:22 Primary care physician: Margarita Goode Consults: 01/27/19 14:59 Consult to Neurology [CONS] Stat Consulting Provider: Neu[facility] Reason for Consult: Lt face/hand numbness LKW 21hrs [employer] [address]. CT non con rt frontotemporal lesion. Stroke workup. Time Notified: 14:59 Call Completed: Yes 01/28/19 15:42 Consult to Cardiology [CONS] Routine Comment: Consulting Provider: [facility] Reason for Consult: CVA with PFO Time Notified: 15:43 Call Completed: Yes 01/29/19 08:27 PT [Consult to Physical Therapy] [CONS] Routine Comment: Evaluate, develop and implement POC Reason for Consult: Stroke Does patient have active BEDREST order?: No Is patient medically & hemodynamically stable?: Yes Patient assessed for mobility or mobilized this visit?: No 01/29/19 08:28 Consult to Occupational Therapy [CONS] Routine Comment: Evaluate, develop and implement POC Reason for Consult: stroke Does patient have active BEDREST order?: Yes Is patient medically & hemodynamically stable?: Yes Patient assessed for mobility or mobilized this visit?: No Discharging clinician: Tanvi Oconnor Anticipated date of discharge: 01/29/19 - Constitutional Vitals: Temp Pulse Resp BP Pulse Ox 97.6 F 66 18 144/90 95 01/29/19 07:13 01/29/19 07:13 01/29/19 07:13 01/29/19 07:13 01/29/19 07:13 General appearance: Present: A&O X 3 Exam: Skin: Free of rash and discoloration. Eyes: Sclera is white. There is no discharge from eyes. ENMT: Oral/pharyngeal mucosa is normal in appearance. There is no discharge from nose or ears. Respiratory: Normal breath sounds with no crackles and wheezes bilaterally. CV: Heart is regular with no gallop or murmur. GI: Abdomen is flat and soft with no palpable mass or visceromegaly. : There is no tenderness in patient's flanks bilaterally. Neuro exam: He has good strength in upper and lower extremities. He has normal eye movements. Psychiatric: He has normal affect. His thought process is appropriate to the situation. - Patient Status Disposition: Home, Self-Care Condition: Fair Functional capacity at discharge: independent ambulation Overall status at discharge: patient is back to baseline - Discharge Instructions Follow Up With: Joslyn Morton DO [Primary Care Provider] - 02/04/19 4:15 pm - Diet and Activity Activity: increase activity as tolerated Diet: advance to your usual diet
[2019-01-29 11:07] VITALS: BP 130/85
== END 2019-01-29 18:04 | disposition home or self-care (01) ==
LOC: EMEROOARM 12:37 → 3BNU 12:37
PROVIDERS: ADMIT Student in an Organized Health Care Education/Training Program; ATTEND Student in an Organized Health Care Education/Training Program